=== PATIENT | male | born 1970 | race Caucasian/White ===

== ENCOUNTER 2025-11-13 09:19 | Emergency (ER) | payer OTHER ==
[~2025-11-13] VITALS: Ht 182.8 cm; Wt 97.5 kg
[2025-11-13] MEDS ORDERED: IOHEXOL 300 MG/ML 100 ML VIAL IV ONE (09:35)
[2025-11-13] MEDS ORDERED: SODIUM CHLORIDE 0.9% 1,000 ML IV ONE (09:40)
[2025-11-13] MEDS ORDERED: ACETAMINOPHEN 100 ML IV ONE (09:40)
[2025-11-13 09:50] LABS: BASO # 0.1 10*3/uL (0.0-0.1); BASO % 1.2 % (0.0-1.0); EOS # 0.3 10*3/uL (0.0-0.4); EOS % 3.8 % (1.0-4.0); MEAN CELL VOLUME 90.7 fl (80.0-94.0); MEAN CORPUSCULAR HGB 30.0 pg (27.0-31.0); MEAN PLATELET VOLUME 9.9 fl (9.6-12.3); MONO # 0.5 10*3/uL (0.1-1.0); MONO % 7.1 % (3.0-9.0); NEUT # 3.8 10*3/uL (2.3-7.9); NEUT % 54.9 % (47.0-73.0); NUCLEATED RED BLOOD CELL 0.0 % (0.0-0.0); NUCLEATED RED BLOOD CELL 0.0 10*3/uL (0.0-0.0); PLATELET COUNT AUTOMATED 272 10*3/uL (130-400); RED CELL DISTRI WIDTH 13.2 % (0-14.5)
[2025-11-13 10:21] LABS: BUN 15 mg/dl (9-23); SGPT/ALT 62 U/L (5-49)
[2025-11-13 10:57] LABS: BILIRUBIN Negative (Negative); BLOOD Negative (Negative); CLARITY Clear (Clear); COLOR Yellow (Yellow); KETONE Negative (Negative); LEUKO ESTERASE Negative (Negative); NITRITE Negative (Negative); PH 7.0 (4.5-8.0); SPECIFIC GRAVITY 1.015 (1.001-1.030); UROBILINOGEN 0.2 E.U./dl (0.0-1.0)
[2025-11-13 11:05] LABS: BACTERIA 1+; EPITHELIAL CELLS 0-2; RBC 0-2 rbc/hpf (0-2); WBC 0-2 wbc/hpf (0-5)
[2025-11-13] MEDS ORDERED: MAGNESIUM OXIDE 400 MG TAB PO ONE (11:10)
== END 2025-11-13 12:03 | disposition home or self-care (01) ==
LOC: ED 09:19
PROVIDERS: Internal Medicine
DX: R10.31 Right lower quadrant pain (principal); N18.2 Chronic kidney disease, stage 2 (mild)